=== PATIENT | female | born 1975 | race Caucasian/White ===

== ENCOUNTER 2023-09-20 09:59 | Emergency (ER) | payer OTHER, SELFPAY ==
[2023-09-20] VITALS (9 sets, daily range): BP systolic 128–143; BP diastolic 80–91; PULSE 68–87; RESP 15–20; TEMP 36.1; O2SAT 98–100
--- NOTE | ~2023-09-20 | XR_ITS ---
Supine and upright views of the abdomen Clinical history: Kidney stone Findings: Bowel gas pattern is nonspecific. No evidence for obstruction or free air. Large calcified right upper quadrant gallstones present. There are small bilateral renal calculi resin. There is a 6 mm proximal left ureteral stone projecting over the left L4 transverse process. Osseous structures ar e intact. Impression: 6 mm proximal to mid left ureteral stone, as detailed above. Bilateral nephrolithiasis. Large calcified gallstone. Reviewed, dictated and finalized at location M. Impression: 6 mm proximal to mid left ureteral stone, as detailed above. Bilateral nephrolithiasis. Large calcified gallstone.
--- NOTE | ~2023-09-20 | CT_ITS ---
EXAMINATION: CT abdomen pelvis wo con DATE: 09/20/2023 12:02 INDICATION: Left flank pain, hematuria. Nausea vomiting 2 days ago. TECHNIQUE: Computed tomography (CT) of the abdomen and pelvis was performed without intravenous contr ast. Automated exposure control and iterative reconstruction technique were employed. Exam dose: 104 7.40 mGy-cm total exam DLP. COMPARISON: 11/11/2015 CT abdomen pelvis FINDINGS: The lung bases are clear of infiltrate or consolidation. Normal heart size. No pericardial or pleural effusion. Peripherally calcified approximately 2.1 cm gallstone. No gallbladder wall thickening or pericholecys tic fluid or fat stranding. No bile duct or pancreatic duct dilatation. No hepatic, splenic, pancreatic, adrenal or renal space-occupying mass lesion is evident on this limi debby noncontrast examination. Moderately prominent left hydroureteronephrosis proximal to an approximately 5 x 6.8 mm proximal left ureteral calculus at the upper L4 level. Bilateral multiple nonobstructing kidney stones. The urinary bladder, uterus and adnexal areas are unremarkable. Normal caliber of the abdominal aorta. No intraperitoneal or retroperitoneal or pelvic mass lesion or adenopathy or ascites. Normal appendix. No bowel obstruction, bowel wall thickening, pneumatosis or intraperitoneal free air . Included skeletal structures are unremarkable. IMPRESSION: Approximately 5 x 6.8 mm proximal left ureteral obstructing calculus with moderately pro minent proximal left hydroureteronephrosis Bilateral nephrolithiasis Cholelithiasis Normal appendix Reviewed, dictated and finalized at [facility]. Reviewed, dictated and finalized at location B. IMPRESSION: Approximately 5 x 6.8 mm proximal left ureteral obstructing calcul us with moderately prominent proximal left hydroureteronephrosis Bilateral nephrolithiasis Cholelithiasis Normal appendix
[2023-09-20 11:14] LABS: Basophils Absolute Auto 0.1 K/mm3 (0.0-0.1); Basophils Percent Auto 0.5 % (0.2-1.2); Eosinophils Absolute Auto 0.2 K/mm3 (0-0.3); Eosinophils Percent Auto 1.8 % (0-4.4); Hematocrit 40.9 % (37.0-47.0); Hemoglobin 13.4 g/dL (12.0-15.0); Immature Granulocyte Absolute 0.04 K/mm3 (0.00-0.031); Immature Granulocyte Percent A 0.4 % (0-0.5); Lymphocytes Absolute Auto 1.89 K/mm3 (0.9-3.2); Lymphocytes Percent Auto 18.5 % (18.3-44.2); Mean Corpuscular HGB Conc 32.8 g/dl (32-36); Mean Corpuscular Hemoglobin 31.3 pg (26-34); Mean Corpuscular Volume 95.6 fl (80-100); Mean Platelet Volume 10.2 fl (7.4-10.4); Monocytes Absolute Auto 0.6 K/mm3 (0.1-0.6); Neutrophils Absolute Auto 7.5 K/mm3 (1.3-6.7); Neutrophils Percent Auto 72.8 % (45.5-73.1); Platelet Count Result 280 k/mm3 (150-375); Red Blood Count 4.28 M/mm3 (4.2-5.4); Red Cell Distribution Width 12.3 % (11.5-14.5); White Blood Count 10.2 K/mm3 (4.5-10.0)
[2023-09-20 11:27] LABS: Alanine Aminotransferase 12 U/L (6-35); Albumin Level 4.1 g/dL (3.5-5.1); Alkaline Phosphatase 51 U/L (38-126); Anion Gap 9 mmol/L (8-16); Aspartate Amino Transferase 23 U/L (14-36); Bilirubin,Total 0.8 mg/dL (0.2-1.3); Blood Urea Nitrogen 20 mg/dL (7-17); Calcium 8.9 mg/dL (8.4-10.2); Carbon Dioxide 24 mmol/L (22-30); Chloride 106 mmol/L (98-107); Estimated CRCL calculation 94 ml/min; Estimated Glomerular Filt Rate > 60; Glucose 90 mg/dL (65-110); Potassium 3.8 mmol/L (3.4-5.0); Sodium 139 mmol/L (137-145)
--- NOTE | 2023-09-20 11:42 | ED.ABDPAIN ---
HPI - Abdominal Pain General Chief Complaint: Abdominal Pain Stated Complaint: left flank pain Time Seen by Provider: 09/20/23 10:27 History of Present Illness HPI narrative: 48-year-old female with history of kidney stones presented to the emergency department for evaluation of left flank pain. Patient's last kidney stone that she needed follow-up with urology was in 2009. Patient states that she believes she has passed some kidney stones since then. Patient began having some left flank pain Saturday. The flank pain was intense but then did begin to improve but has not fully resolved. Patient presented to the emergency department today for evaluation of the persistent left flank pain. Related Data Allergies Allergy/AdvReac Type Severity Reaction Status Date / Time No Known Allergies Allergy Verified 09/20/23 11:09 Review of Systems Review of Systems: All systems reviewed & are unremarkable except as noted in HPI and below PMFSH Past Medical History Medical History (Updated 09/20/23 @ 13:26 by Clifford Gallardo MD) Anxiety Arthralgia Benign essential hypertension Depression Hyperlipidemia Tobacco use Vitamin deficiency Family History Family History Mother Hypertension Father Cerebrovascular accident Social History Social History Smoking packs per day: 1 Smoking cigarettes per day: 20.0 Smoking status: Current every day smoker Second hand tobacco smoke exposure: Yes Alcohol intake: never Exam Narrative: APPEARANCE: Well appearing, no pain, no distress, well-nourished. HEAD: normocephalic, atraumatic. EYES: PERRLA/EOMI, conjunctivae clear. NOSE: Normal no drainage NECK: Supple. No adenopathy, no masses. RESPIRATORY: Airway patent, respirations nonlabored. Clear to auscultation bilaterally, no rales, rhonchi, wheezing. CARDIOVASCULAR: Regular rate and rhythm without murmurs rubs or gallops. ABDOMINAL: Soft, nontender, nondistended, normal bowel sounds MUSCULOSKELETAL: Moves all extremities. Strength/ROM intact, No edema, No calf tenderness. NEURO: Alert. Cranial nerves II through XII intact. Good gait. Good coordination SKIN: Warm, dry. Normal Color Course Course Emergency Course: 48-year-old female present emergency department for evaluation of left flank pain. Patient is afebrile with mild leukocytosis of 10.2. Hemoglobin is stable at 13.4. Patient's creatinine is at its baseline was 0.7. Urine did have blood with some white blood cells but predominantly red blood cells. CT scan did show a 5 x 6.8 mm left proximal ureteral calculi. Patient's pain was controlled and patient was comfortable to plan with follow-up with CTS as outpatient. Patient was provided prescriptions for Zofran, Flomax, [place]. Patient was updated on reasons to return to the emergency department. All question concerns were addressed. Vital Signs Vital signs: Vital Signs Temperature 97.0 F L 09/20/23 10:02 Pulse Rate 87 09/20/23 10:02 Respiratory Rate 20 09/20/23 10:02 Blood Pressure 143/87 H 09/20/23 10:02 Pulse Oximetry 100 09/20/23 10:02 Oxygen Delivery Room Air 09/20/23 10:02 Temperature 97.0 F L 09/20/23 10:02 Pulse Rate 74 09/20/23 12:32 Respiratory Rate 15 09/20/23 12:32 Blood Pressure 131/84 09/20/23 12:32 Pulse Oximetry 99 09/20/23 13:00 Oxygen Delivery Room Air 09/20/23 10:02 MDM - Abdominal Pain Differential Diagnosis Differential diagnosis: Likely abdominal pain, acute appendicitis, calculus of kidney, diverticulitis, pancreatitis and small bowel obstruction Lab Data Attestation: I reviewed the patient's lab results. 09/20/23 10:59 09/20/23 10:59 Labs: Lab Results 09/20/23 09/20/23 Range/Units 10:59 11:20 WBC 10.2 H (4.5-10.0) K/mm3 RBC 4.28 (4.2-5.4) M/mm3 Hgb 13.4 (12.0-15.0) g/dL Hct 40.9
[2023-09-20 11:44] LABS: Appearance Urine Cloudy (Clear); Bacteria Urine 1+ /hpf; Bilirubin Urine Negative (Negative); Blood Urine 2+ (Negative); Color Urine Yellow (Yellow); Glucose Urine UA Negative (Negative); Ketones Urine Negative (Negative); Leukocyte Esterase Ur Trace LEU/UL (Negative); Need Manual Microscopic Reviewed; Nitrate Urine Negative (Negative); Non Pathogenic Casts 0-2; Protein Urine Negative (Negative); RBC Urine >100 /hpf (0-2); Specific Grav Ur 1.014 (1.001-1.035); Squamous Epithelial Cell Urine Many /hpf (Few)
[2023-09-20 11:45] LABS: Add Urine Microscopic? YES
[2023-09-20] MEDS: CEPHALEXIN 500 MG CAPSULE PO (13:26)
== END 2023-09-20 13:34 | disposition home or self-care (01) ==
PROVIDERS: Emergency Provider Emergency Medicine; PCP Family Medicine
DX: N13.2 Hydronephrosis with renal and ureteral calculous obstruction (principal); I10 Essential (primary) hypertension; E78.5 Hyperlipidemia, unspecified; F41.9 Anxiety disorder, unspecified; F32.A Depression, unspecified; F17.210 Nicotine dependence, cigarettes, uncomplicated
CPT/HCPCS: 36415; 74018; 74176; 80053; 81001; 81025; 85025; 87086; 87088; 99284; A9270

== ENCOUNTER 2023-10-02 09:53 | Outpatient (CLI) | payer OTHER, SELFPAY ==
[2023-10-02 11:18] LABS: INR 0.9; Partial Thromboplastin Time 29.1 SECONDS (22.3-36.8); Prothrombin Time 12.8 Seconds (11.1-14.7)
== END 2023-10-02 09:54 | disposition home or self-care (01) ==
LOC: ANHSURGERY 10:01
PROVIDERS: Visit Provider Urology
DX: N20.1 Calculus of ureter (principal); Z01.818 Encounter for other preprocedural examination
CPT/HCPCS: 36415; 85610; 85730

== ENCOUNTER 2023-10-04 02:41 | Day surgery (SDC) | payer OTHER, SELFPAY ==
[2023-09-27 14:09] VITALS: BMI 36.3
--- NOTE | 2023-09-27 14:14 | PC.NURSE ---
Report to the Outpatient Waiting Room, entrance under the green pavilion located off [facility], at time 6:30 on date 10/04/23. Planned Procedure Time: 8:30. Time changes happen often and if your time is changed the preop area will call you the afternoon before. - You and your visitor will be asked to self-screen and do not enter if you have any COVID symptoms. - A mask is optional within the hospital at this time. Patients may have clear liquids (water, carbonated beverages, clear teas, apple juice) until 3 hours prior to surgery (5:30) with a maximum of 20 ounces. - No food from midnight until time of surgery Take the following medications with a SIP of water the morning of surgery: PAIN PILL IF NEEDED, ANTIBIOTIC (IF STILL TAKING) DO NOT STOP ANY OF YOUR OTHER PRESCRIPTION MEDICATIONS PRIOR TO SURGERY ?EXCEPT THE FOLLOWING Medications to discontinue per physician: N/A Date to take last dose: N/A Please no make-up, nail french, hairspray, perfume, deodorant, or body powder the day of surgery. No jewelry (including any body piercings) or valuables the day of surgery, leave them at home. Please take a shower or bath the night before, or the morning of, surgery with an antibacterial soap. Wear comfortable, loose fitting clothing. - Jewelry must be removed prior to entering the operating room. Rings and piercings that are not removed may be cut off. - The hospital will not accept responsibility for valuables. - Please leave all valuables, including medications, at home the day of surgery. If you are going home after surgery, a licensed wagon driver salesperson must drive you home. - NO public transportation without another adult if you receive anesthesia. - We recommend that an adult stay with you for 24 hours following discharge. - We also recommend that you do not drive, make important decision, drink alcoholic beverages, or take any drugs that were not prescribed by your health care provider for at least 24 hours after your discharge time. Follow any additional instructions given to you from your surgeon. If you or anyone in your household have experienced Covid symptoms in the past week, please notify your surgeon or the nurse liaison at the phone number below for possible testing. Telephone instructions given to PT - BENJY JAMIL and asked if any additional questions and then verbalized understanding. Patient advised to call surgeon office or pre surgery nurse liaison [phone] if any additional questions.
[2023-10-04] VITALS (8 sets, daily range): BP systolic 99–136; BP diastolic 49–89; PULSE 51–88; RESP 14–21; TEMP 36.3–36.5; O2SAT 96–100
--- NOTE | ~2023-10-04 | XR_ITS ---
EXAMINATION: XR abdomen/kub 1V DATE: 10/04/2023 07:23 INDICATION: Kidney stone. TECHNIQUE: A supine view of the abdomen on 2 radiographs was obtained. COMPARISON: Abdomen radiographs 09/20/2023, CT abdomen and pelvis 09/20/2023 FINDINGS: There are no dilated loops of bowel. There is a gallstone in the gallbladder. There are mul tiple stones in each kidney measuring up to 5 mm on the right. There is a 6 mm stone in distal left u reter. IMPRESSION: 1. 6 mm stone in distal left ureter. 2. Bilateral kidney stones. 3. Cholelithiasis. Reviewed, dictated and finalized at location E.
--- NOTE | 2023-10-04 06:45 | WPDHPUPDATE1 ---
History and Physical Update Update Date/Time: 10/04/23 06:45 History and Physical has been reviewed, including an updated exam of the patient. There are NO changes in the patient's condition. Risks, benefits, and alternatives have been discussed and questions answered. Patient agrees to proceed with procedure.
--- NOTE | 2023-10-04 07:56 | P.PNAN_ITS ---
Anes - Initial Pre Proc Eval Procedure: Operation Date: 10/04/23 08:30 Proposed Procedures p Left Ureteral Extracorporeal Shock Wave Lithotripsy - Raul Salazar MD Date/Time: 10/04/23 07:56 Surgeon: Raul Salazar MD Pre Op Diagnosis: left ureteral stone Patient Data Age: 48 Gender: F Height: 1.6 m Weight: 93 kg Allergies Allergy/AdvReac Type Severity Reaction Status Date / Time No Known Allergies Allergy Verified 09/27/23 14:08 Home Medications Medication Instructions Recorded Confirmed Type cephalexin 500 mg capsule 500 mg PO Q8H 10 days #30 caps 09/20/23 09/27/23 Rx hydrocodone 5 mg-acetaminophen 325 1 tablet PO Q12H PRN pain #14 tabs 09/20/23 09/27/23 Rx mg tablet ondansetron 4 mg disintegrating 4 mg PO Q8H PRN nausea and 09/20/23 09/27/23 Rx tablet vomiting #20 tabs tamsulosin 0.4 mg capsule (Flomax) 0.4 mg PO DAILY #10 caps 09/20/23 09/27/23 Rx Patient hx anesthesia problems: post op nausea/vomiting Family hx anesthesia problems: none Results Review: All pre-operative results and documents have been reviewed as part of the pre- operative evaluation. [facility] Past Medical History Medical History Anxiety Arthralgia Benign essential hypertension Depression Hyperlipidemia Tobacco use Vitamin deficiency Family History Family History Mother Hypertension Father Cerebrovascular accident Social History Social History Smoking packs per day: 1 Smoking cigarettes per day: 20.0 Years smoked: 10 Smoking pack-years: 10.00 Smoking status: Current every day smoker Tobacco type: cigarettes Second hand tobacco smoke exposure: Yes Alcohol intake: never Substance use: never Substance use type: does not use Living arrangements: with family Spiritual care concerns: No Anes - Eval Final PreProcedure Day of Procedure 10/04/23 07:56 Patient weight: obese Heart: regular rate and rhythm Lungs: decreased breath sounds Airway: Mallampati scale class II Neurological: alert and oriented Last oral intake: >/= 8 hours ASA classification: III Emergent: no Anesthetic plan: proceed Anesthesia type and monitoring: general LMA and standard monitoring Results Review: All pre-operative results and documents have been reviewed as part of the pre- operative evaluation. Informed Consent: The patient's anesthetic plan and its attendant risks and benefits were discussed with the patient/family/POA. Questions were solicited and answers provided to the satisfaction of the patient/family/POA.
[2023-10-04] MEDS: LACTATED RINGERS 1,000 ML 30 ML IV CONT (08:00)
[2023-10-04] MEDS: ceFAZolin 2 GM/D5W 50 ML 2 GM/50 ML BAG IVPB (08:24)
--- NOTE | 2023-10-04 08:39 | W.PM.PROC2 ---
Procedure Note - Detailed Date of Procedure 10/04/23 Pre-op Diagnosis Left ureteral stone Post-op Diagnosis Same Procedure Performed Left ESWL Surgeon Raul Salazar MD Anesthesia General Description of Procedure The patient was brought to the operative suite where she was placed in the supine position on the Dornier lithotripsy table. The focal point of the lithotripter was placed at a 6-7mm left distal ureteral calculus. A total of 3000 shocks were delivered at a power setting of 1-5. There appeared to be good fragmentation of the stone. The patient tolerated the procedure well and was taken to the recovery room in good condition. Drains No Packing No Condition Stable
[2023-10-04] MEDS: SCOPOLAMINE 1.5 MG PATCH TRANSDERM (08:47)
== END 2023-10-04 11:00 | disposition home or self-care (01) ==
PROVIDERS: Visit Provider Urology
PROC: (CPT 50590; principal; 2023-10-04 08:30)
DX: N20.1 Calculus of ureter (principal); F17.210 Nicotine dependence, cigarettes, uncomplicated; E66.9 Obesity, unspecified; Z68.35 Body mass index [BMI] 35.0-35.9, adult
CPT/HCPCS: 50590; 36415; 74018; 85610; 85730; A9270; J0690; J1100; J2250; J2405; J2704; J3010; J7120

== ENCOUNTER 2023-11-15 12:49 | Emergency (ER) | payer SELFPAY ==
--- NOTE | ~2023-11-15 | XR_ITS ---
EXAMINATION: XR ankle RT 2V DATE: 11/15/2023 13:14 INDICATION: Right ankle pain. Fall. TECHNIQUE: 2 views of right ankle were obtained. COMPARISON: None. FINDINGS: Bone alignment is normal. No fracture. Joint spaces are normal. There are enthesophytes at the posterior and plantar aspects of calcaneal tuberosity. IMPRESSION: 1. No fracture. Reviewed, dictated and finalized at location A. MAKER IMPRESSION: 1. No fracture.
[2023-11-15 12:50] VITALS: BP 141/92; PULSE 87; RESP 20; TEMP 36.6; O2SAT 100
--- NOTE | 2023-11-15 13:10 | ED.GENADULT ---
HPI - General Adult General Chief complaint: Extremity Injury, Lower Stated complaint: Right ankle- s/p fall Time Seen by Provider: 11/15/23 12:55 Source: patient Mode of arrival: ambulatory Limitations: no limitations History of Present Illness HPI narrative: this is a 40-year-old female who presents to the ED with chief complaint of right ankle pain following a fall that happened 3 days ago. Reports that she was walking down stairs in the dark when she felt her ankle of and caused her to fall down. She states she was on 2nd to last step when this happened. Reports she has been able to walk with a limp since the for most the pain is in that right ankle. Denies any further sites of pain or injury. Denies numbness or weakness. Related Data Allergies Allergy/AdvReac Type Severity Reaction Status Date / Time No Known Allergies Allergy Verified 11/15/23 13:01 Review of Systems Review of Systems: All systems as dictated in HPI PMFSH Past Medical History Medical History Anxiety Arthralgia Benign essential hypertension Depression Hyperlipidemia Tobacco use Vitamin deficiency Family History Family History Mother Hypertension Father Cerebrovascular accident Social History Social History Smoking packs per day: 1 Smoking cigarettes per day: 20.0 Years smoked: 10 Smoking pack-years: 10.00 Smoking status: Current every day smoker Tobacco type: cigarettes Second hand tobacco smoke exposure: Yes Alcohol intake: never Substance use: never Substance use type: does not use Living arrangements: with family Spiritual care concerns: No Exam Narrative: GENERAL: Well-appearing, well-nourished, and in no acute distress. Ambulatory with limp. HEAD: Normocephalic, atraumatic. EYES: PERRLA and EOMI. ENT: Nares clear, no rhinorrhea or epistaxis. Mucous membranes moist. Oropharynx without tonsillar hypertrophy exudate or other lesions. NECK: Supple. No adenopathy or masses. CHEST: No respiratory distress. Clear to auscultation. No wheezes rales or rhonchi HEART: Regular rate and rhythm. No murmur heard. Normal peripheral pulses. ABDOMEN: Soft, nontender, nondistended, normal active bowel sounds. MSK: RLE: moderate swelling and bruising noted. No deformity. Moderate tenderness to the lateral ankle and mild tenderness to the medial ankle. Neurovascularly intact distally. LLE: Benign SKIN: Warm, dry, no rash. NEURO: Alert and oriented x3. No focal deficits. PSYCH: Normal mood and affect. Course Vital Signs Vital signs: Vital Signs Temperature 98 F 11/15/23 12:50 Pulse Rate 87 11/15/23 12:50 Respiratory Rate 20 11/15/23 12:50 Blood Pressure 141/92 H 11/15/23 12:50 Pulse Oximetry 100 11/15/23 12:50 Oxygen Delivery Room Air 11/15/23 12:50 Temperature 98 F 11/15/23 12:50 Pulse Rate 87 11/15/23 12:50 Respiratory Rate 20 11/15/23 12:50 Blood Pressure 141/92 H 11/15/23 12:50 Pulse Oximetry 100 11/15/23 12:50 Oxygen Delivery Room Air 11/15/23 12:50 Medical Decision Making [facility] Narrative Medical decision making narrative: This is a 48-year-old female who presents to the ED with chief complaint of right ankle pain after a fall that occurred 2 days ago. Vitals are normal. Exam shows moderate swelling and bruising to the right ankle. She is ambulatory with limp. x-rays of the right ankle today rule out fracture. Symptoms consistent with ankle sprain. Crutches and Ciro wrap given Pt will be discharged in stable condition. Return precautions given and supportive measures discussed. Pt is understanding and agreeable with plan for discharge and follow-up with PCP. Vital Signs Vital Signs: Vital Signs Temperature 98 F 11/15/23 12:50 Pulse Rate 87 11/01
== END 2023-11-15 13:49 | disposition home or self-care (01) ==
PROVIDERS: Emergency Provider Physician Assistant
DX: S93.401A Sprain of unspecified ligament of right ankle, initial encounter (principal); S96.911A Strain of unspecified muscle and tendon at ankle and foot level, right foot, initial encounter; E78.5 Hyperlipidemia, unspecified; F17.210 Nicotine dependence, cigarettes, uncomplicated; W10.9XXA Fall (on) (from) unspecified stairs and steps, initial encounter
CPT/HCPCS: 73600; 99283